=== PATIENT | female | born 1955 | race Caucasian/White ===

== ENCOUNTER → 2020-09-23 13:29 | Outpatient (CLI) | payer MEDICARE, BC, SELFPAY | PROVIDERS: PCP Family Medicine; Referring Provider Family Medicine; Visit Provider Family Medicine | DX: M81.0 Age-related osteoporosis without current pathological fracture (principal); Z78.0 Asymptomatic menopausal state | CPT/HCPCS: 77080 ==

== ENCOUNTER → 2020-10-24 07:01 | Outpatient (CLI) | payer MEDICARE, BC, SELFPAY ==
[2020-10-24 08:05] LABS: Hematocrit 41.1 % (36-46); Hemoglobin 13.7 g/dL (12.0-16.0); Mean Corpuscular HGB Conc 33.4 % (30-36); Mean Corpuscular Hemoglobin 32.5 PG (26-34); Mean Corpuscular Volume 97.4 fL (80-100); Platelet Count 230 X10^3/uL (150-400); Red Blood Cell Count 4.22 X10^6/uL (4.0-5.2); Red Cell Distribution Width 12.7 % (11.6-14.8)
[2020-10-24 08:58] LABS: Vitamin D 25 Hydroxy (D3) 58.5 ng/mL (30.0-100.0)
[2020-10-24 09:14] LABS: TSH w/ Reflex to FT4 1.49 uIU/mL (0.47-4.68)
[2020-10-25 07:09] LABS: Parathyroid Hormone Int 53 pg/mL (15-65)
== END ==
PROVIDERS: PCP Family Medicine; Referring Provider Family Medicine; Visit Provider Family Medicine
DX: M81.0 Age-related osteoporosis without current pathological fracture (principal); M85.859 Other specified disorders of bone density and structure, unspecified thigh
CPT/HCPCS: 36415; 82306; 83970; 84443; 85027

== ENCOUNTER → 2020-10-25 07:02 | Outpatient (CLI) | payer MEDICARE, BC, SELFPAY ==
[2020-10-25 09:58] LABS: Calcium 24 Hour Urine 92 mg/day (100-300); Calcium Urine Random 8.4 mg/dL; Collection Time Urine 24 Hours; Total Volume Urine 1100 mL
[2020-10-25 12:39] LABS: Collection Time Urine 24 Hours; Creatinine 24 Hour Urine 886 mg/day (800-1800); Creatinine Urine Random 80.5 mg/dL; Total Volume Urine 1100 mL
== END ==
PROVIDERS: PCP Family Medicine; Referring Provider Family Medicine; Visit Provider Family Medicine
DX: M81.0 Age-related osteoporosis without current pathological fracture (principal)
CPT/HCPCS: 82340; 82570

== ENCOUNTER → 2020-11-06 07:03 | Outpatient (CLI) | payer MEDICARE, BC, SELFPAY ==
[2020-11-07 19:07] LABS: Deamidated Gliadin Ab IgA 6 units (0-19); Deamidated Gliadin Ab IgG 1 units (0-19); Immunoglobulin A,Qn 164 mg/dL (87-352); t-Transglutaminase IgA <2 U/mL (0-3)
== END ==
PROVIDERS: PCP Family Medicine; Referring Provider Family Medicine; Visit Provider Family Medicine
DX: M81.0 Age-related osteoporosis without current pathological fracture (principal)
CPT/HCPCS: 36415; 82784; 83516

== ENCOUNTER → 2022-01-14 07:20 | Outpatient (CLI) | payer MEDICARE, BC, SELFPAY ==
[2022-01-14 07:58] LABS: Add Manual Diff / Slide Review NO; Basophils Absolute Auto 0 /uL (0-100); Basophils Percent Auto 0.5 % (0-2); Eosinophils Absolute Auto 100 /uL (0-450); Eosinophils Percent Auto 1.4 % (2-4); HEMOLYSIS < 15 (0-50); Hematocrit 39.5 % (36-46); Hemoglobin 13.3 g/dL (12.0-16.0); Lymphocytes Absolute Auto 1800 /uL (1100-4500); Lymphocytes Percent Auto 45.4 % (25-40); Mean Corpuscular HGB Conc 33.7 % (30-36); Mean Corpuscular Hemoglobin 32.6 PG (26-34); Mean Corpuscular Volume 96.8 fL (80-100); Monocytes Absolute Auto 400 /uL (0-900); Monocytes Percent Auto 9.2 % (3-14); Neutrophils Absolute Auto 1700 /uL (1500-7000); Neutrophils Percent Auto 43.5 % (50-75); Platelet Count 229 X10^3/uL (150-400); Red Blood Cell Count 4.08 X10^6/uL (4.0-5.2); Red Cell Distribution Width 13.2 % (11.6-14.8)
[2022-01-14 08:03] LABS: BUN Creatinine Ratio 23.3 (6-22); Blood Urea Nitrogen 20 mg/dL (7-17); Calcium 9.4 mg/dL (8.4-10.2); Carbon Dioxide 30 mmol/L (22-32); Chloride 105 mmol/L (98-107); Cholesterol 213 mg/dL (140-199); Estimated Glomerular Filt Rate > 60 mL/min (>60); Glucose 97 mg/dL (80-110); HDL Cholesterol 87 mg/dL (40-60); LDL Cholesterol Calculated 114 mg/dL (<100); Potassium 4.4 mmol/L (3.4-5.1); Sodium 139 mmol/L (137-145); Triglycerides 62 mg/dL (35-150)
[2022-01-14 08:21] LABS: Vitamin D 25 Hydroxy (D3) 75.7 ng/mL (30.0-100.0)
[2022-01-15 03:36] LABS: LDL Cholesterol Direct 104 mg/dL (<100)
[2022-01-15 04:18] LABS: Hemoglobin A1C% w Est Avg Glu 5.5 % (4.0-6.0)
== END ==
PROVIDERS: PCP Family Medicine; Referring Provider Family Medicine; Visit Provider Family Medicine
DX: K90.0 Celiac disease (principal); R73.09 Other abnormal glucose; E78.00 Pure hypercholesterolemia, unspecified; M81.0 Age-related osteoporosis without current pathological fracture; R79.89 Other specified abnormal findings of blood chemistry
CPT/HCPCS: 36415; 80048; 80061; 82306; 83036; 83721; 85025

== ENCOUNTER → 2022-01-15 07:17 | Outpatient (CLI) | payer MEDICARE, BC, SELFPAY ==
[2022-01-15 11:41] LABS: Collection Time Urine 24 Hours; Creatinine 24 Hour Urine 901 mg/day (800-1800); Creatinine Urine Random 42.9 mg/dL; Total Volume Urine 2100 mL
[2022-01-15 16:13] LABS: Calcium 24 Hour Urine 162 mg/day (100-300); Calcium Urine Random 7.7 mg/dL; Collection Time Urine 24 Hours; Total Volume Urine 2100 mL
== END ==
PROVIDERS: PCP Family Medicine; Referring Provider Family Medicine; Visit Provider Family Medicine
DX: M81.0 Age-related osteoporosis without current pathological fracture (principal)
CPT/HCPCS: 82340; 82570

== ENCOUNTER → 2022-02-05 07:54 | Outpatient (CLI) | payer MEDICARE, BC, SELFPAY ==
[2022-02-06 16:45] LABS: Deamidated Gliadin Ab IgA 5 units (0-19); Deamidated Gliadin Ab IgG 1 units (0-19); Immunoglobulin A,Qn 157 mg/dL (87-352); t-Transglutaminase IgA <2 U/mL (0-3)
== END ==
PROVIDERS: PCP Family Medicine; Referring Provider Family Medicine; Visit Provider Family Medicine
DX: K90.0 Celiac disease (principal)
CPT/HCPCS: 36415; 82784; 83516

== ENCOUNTER → 2022-09-30 09:42 | Outpatient (CLI) | payer MEDICARE, BC, SELFPAY ==
--- NOTE | 2022-09-29 09:45 | DI.DEXA.S_ITS ---
Bone Density Report Name: ZARI CEDILLO Age: 67 Sex: Female Ethnicity: White Date of : 1955 Indication: postmenopausal osteoporosis; monitoring treatment; Referring Provider: RADHA ROWLEY Study: Bone densitometry was performed. Exam Date: September 30, 2022 Accession number: [id number] Bone Density: Region BMD T-score Z-score Classification AP Spine(L1, L2, L3) 0.773 -2.2 -0.3 Osteopenia Femoral Neck (Left) 0.567 -2.5 -0.8 Osteoporosis Total Hip (Left) 0.686 -2.1 -0.7 Osteopenia Femoral Neck (Right) 0.531 -2.9 -1.2 Osteoporosis Total Hip (Right) 0.645 -2.4 -1.0 Osteopenia Total Hip Mean 0.666 -2.3 -0.9 Osteopenia World Health Organization criteria for BMD impression classify patients as: Normal (T-score at or above -1.0), Osteopenia (T-score between -1.0 and -2.5), or Osteoporosis (T-score at or below -2.5). 10-year Fracture Risk: FRAX not reported because: Some T-score for Spine Total or Hip Total or Femoral Neck at or below -2.5 Treated for osteoporosis Previous Exams: -- Region Exam Age BMD T-score BMD Change BMD Change Date g/cm2 vs Baseline vs Previous -- AP Spine (L1-L3) 09/30/2022 67 0.773 -2.2 0.015 (2.0%)# 0.015 (2.0%)# 09/23/2020 65 0.757 -2.4 Total Hip(Left) 09/30/2022 67 0.686 -2.1 0.015 (2.2%)# 0.015 (2.2%)# 09/23/2020 65 0.672 -2.2 Total Hip(Right) 09/30/2022 67 0.645 -2.4 0.018 (2.9%)# 0.018 (2.9%)# 09/23/2020 65 0.626 -2.6 -- *Denotes significance at 95% confidence level, LSC for AP Spine = 0.022 g/cm2, LSC for Total Hip = 0.027 g/cm2 # Denotes dissimilar scan types or analysis methods Impression: The patient has osteoporosis, based on the Right Femoral Neck T-score. No significant bone loss was observed. Discussion: PATIENT UNDER TREATMENT WITH NO SIGNIFICANT BMD LOSS SINCE LAST EXAM. In an untreated patient, BMD typically declines with age. A lack of decline or gain is usually a sign that treatment is efficacious and fracture risk is reduced. It is important to ask patients whether they are taking their medications and to encourage continued and appropriate compliance with their osteoporosis therapies to reduce fracture risk. It is also important to review their risk factors and encourage appropriate calcium and vitamin D intakes, exercise, fall prevention and other lifestyle measures. Follow-Up: Consider a repeat BMD and Vertebral Fracture Assessment (VFA) exam in 2 years or sooner if medically necessary, to reassess this patient's status. Reported by: SALVADOR DUNHAM M.D. on 09/30/2022 10:05:00 AM.
== END ==
PROVIDERS: PCP Internal Medicine; Referring Provider Internal Medicine; Visit Provider Internal Medicine
DX: M81.0 Age-related osteoporosis without current pathological fracture (principal); Z79.83 Long term (current) use of bisphosphonates
CPT/HCPCS: 77080

== ENCOUNTER → 2023-01-22 08:51 | Outpatient (CLI) | payer MEDICARE, BC, SELFPAY ==
[2023-01-22 10:45] LABS: Alanine Aminotransferase 23 IU/L (<35); Albumin 4.7 g/dL (3.5-5.0); Albumin Globulin Ratio 1.6 (1.0-2.8); Alkaline Phosphatase 62 U/L (38-126); Aspartate Aminotransferase 26 IU/L (14-36); BUN Creatinine Ratio 22.4 (6-22); Bilirubin Total 0.8 mg/dL (0.2-1.3); Blood Urea Nitrogen 17 mg/dL (7-17); Calcium 9.7 mg/dL (8.4-10.2); Carbon Dioxide 30 mmol/L (22-32); Chloride 103 mmol/L (98-107); Cholesterol 229 mg/dL (140-199); Estimated Glomerular Filt Rate > 60 mL/min (>60); Globulin 2.9 g/dL (1.7-4.1); Glucose 87 mg/dL (80-110); HDL Cholesterol 94 mg/dL (40-60); HEMOLYSIS < 15 (0-50); LDL Cholesterol Calculated 123 mg/dL (<100); Potassium 4.6 mmol/L (3.4-5.1); Sodium 140 mmol/L (137-145); Total Protein 7.6 g/dL (6.3-8.2); Triglycerides 60 mg/dL (35-150)
[2023-01-23 08:47] LABS: x Labcorp Estim. Avg Glu (eAG) 123 mg/dL (.); x Labcorp Hemoglobin A1c 5.9 % (4.8-5.6)
== END ==
PROVIDERS: PCP Internal Medicine; Referring Provider Internal Medicine; Visit Provider Internal Medicine
DX: E78.2 Mixed hyperlipidemia; M81.0 Age-related osteoporosis without current pathological fracture; R73.01 Impaired fasting glucose
CPT/HCPCS: 36415; 80053; 80061; 83036

== ENCOUNTER → 2023-05-05 17:04 | Outpatient (CLI) | payer MEDICARE, BC, SELFPAY ==
[2023-05-05 17:47] LABS: Hemoglobin A1C% w Est Avg Glu 5.7 % (4.0-6.0)
[2023-05-05 17:55] LABS: Glucose 107 mg/dL (80-110)
== END ==
PROVIDERS: PCP Internal Medicine; Referring Provider Internal Medicine; Visit Provider Internal Medicine
DX: R73.01 Impaired fasting glucose (principal)
CPT/HCPCS: 36415; 82947; 83036

== ENCOUNTER → 2024-01-28 06:55 | Outpatient (CLI) | payer MEDICARE, BC, SELFPAY ==
[2024-01-28 07:52] LABS: Hematocrit 39.9 % (36-46); Hemoglobin 13.6 g/dL (12.0-16.0); Mean Corpuscular Hemoglobin 32.7 PG (26-34); Mean Corpuscular Volume 96.2 fL (80-100); Platelet Count 233 X10^3/uL (150-400); Red Blood Cell Count 4.15 X10^6/uL (4.0-5.2); Red Cell Distribution Width 13.5 % (11.6-14.8)
[2024-01-28 08:01] LABS: Hemoglobin A1C% w Est Avg Glu 5.4 % (4.0-6.0)
[2024-01-28 08:06] LABS: Alanine Aminotransferase 28 IU/L (<35); Albumin 4.7 g/dL (3.5-5.0); Albumin Globulin Ratio 1.8 (1.0-2.8); Alkaline Phosphatase 84 U/L (38-126); Aspartate Aminotransferase 31 IU/L (14-36); BUN Creatinine Ratio 32.5 (6-22); Bilirubin Total 0.8 mg/dL (0.2-1.3); Blood Urea Nitrogen 27 mg/dL (7-17); Calcium 9.8 mg/dL (8.4-10.2); Carbon Dioxide 27 mmol/L (22-32); Chloride 106 mmol/L (98-107); Cholesterol 199 mg/dL (140-199); Estimated Glomerular Filt Rate > 60 mL/min (>60); Globulin 2.6 g/dL (1.7-4.1); Glucose 91 mg/dL (80-110); HDL Cholesterol 99 mg/dL (40-60); HEMOLYSIS 18 (0-50); LDL Cholesterol Calculated 86 mg/dL (<100); Potassium 4.5 mmol/L (3.4-5.1); Sodium 141 mmol/L (137-145); Total Protein 7.3 g/dL (6.3-8.2); Triglycerides 68 mg/dL (35-150)
== END ==
PROVIDERS: PCP Internal Medicine; Referring Provider Internal Medicine; Visit Provider Internal Medicine
DX: R73.01 Impaired fasting glucose (principal); E78.2 Mixed hyperlipidemia; M81.0 Age-related osteoporosis without current pathological fracture; M02.30 Reiter's disease, unspecified site
CPT/HCPCS: 36415; 80053; 80061; 83036; 85027

== ENCOUNTER → 2024-10-09 12:38 | Outpatient (CLI) | payer MEDICARE, BC, SELFPAY ==
--- NOTE | 2024-10-09 12:40 | DI.RAD.S_ITS ---
PROCEDURE: XR DEXA AXIAL SKELETON INDICATIONS: osteoporosis COMPARISON: [facility], , XR DEXA AXIAL SKELETON, 09/30/2022, 9:53. FINDINGS: Lumbar Spine: Bone mineral density is 0 0.738 g/cm2, T score -2.5, previously -2.2. Left Femoral Neck: Bone mineral density 0.565 g/cm2, T score -2.6. Left Hip: Bone mineral density is 0.686 g/cm2, T score of -2.1, previously -2.1. Fracture Risk Calculation (when applicable): 10-year fracture risk of a major osteoporotic fracture 13 percent and of a hip fracture 3.4 percent. (T score greater or equal to -1.0 to: NORMAL) (T score from -1.1 to -2.4: OSTEOPENIA) (T score less than or equal to -2.5: OSTEOPOROSIS) IMPRESSION: Left femoral neck osteoporosis Follow-up guidelines as follows: Osteoporosis: Consider a repeat DEXA and Vertebral Fracture Assessment (VFA) exam in 2 years or sooner if medically necessary, to reassess this patient's status. Osteopenia: Consider a repeat DEXA in 2-3 years to reassess this patient's status, or if there is a new clinical indication. Normal: Consider a repeat DEXA in 5 years or sooner, or if there is a new clinical indication. All treatment decisions require clinical judgment and consideration of individual patient factors, including patient preferences, comorbidities, previous drug use, risk factors not captured in the FRAX model (e.g., frailty, falls, vitamin D deficiency, increased bone turnover, interval significant decline in bone density ) and possible under- or over-estimation of fracture risk by FRAX. In addition, the NOF Guide recommends that FDA-approved medical therapies be considered in postmenopausal women and men age >= 50 years with a: * Hip or vertebral (clinical or morphometric) fracture * T-score of <=-2.5 at the spine or hip * Ten-year fracture probability by FRAX of >= 3% for hip fracture or >=20% for major osteoporotic fracture. Approved by: Matt Murrieta M.D. on 10/09/2024 at 18:30
== END ==
PROVIDERS: PCP Internal Medicine; Referring Provider Internal Medicine; Visit Provider Internal Medicine
DX: M81.0 Age-related osteoporosis without current pathological fracture (principal)
CPT/HCPCS: 77080

== ENCOUNTER → 2025-01-30 07:03 | Outpatient (CLI) | payer MEDICARE, BC, SELFPAY ==
[2025-01-30 07:53] LABS: Hemoglobin A1C% w Est Avg Glu 5.6 % (4.0-6.0)
[2025-01-30 09:05] LABS: Blood Urea Nitrogen 24 mg/dL (7-17); Calcium 10.1 mg/dL (8.4-10.2); Carbon Dioxide 28 mmol/L (22-32); Chloride 103 mmol/L (98-107); Cholesterol 202 mg/dL (140-199); Estimated Glomerular Filt Rate > 60 mL/min (>60); Glucose 92 mg/dL (70-99); HDL Cholesterol 86 mg/dL (40-60); HEMOLYSIS < 15 (0-50); Potassium 4.4 mmol/L (3.4-5.1); Sodium 139 mmol/L (137-145); Triglycerides 63 mg/dL (35-150)
== END ==
PROVIDERS: PCP Internal Medicine; Referring Provider Internal Medicine; Visit Provider Internal Medicine
DX: R73.01 Impaired fasting glucose (principal); E78.2 Mixed hyperlipidemia
CPT/HCPCS: 36415; 80048; 80061; 83036; 84450

== ENCOUNTER 2025-05-25 11:50 | Day surgery (SDC) | payer MEDICARE, OTHER, SELFPAY ==
[2025-05-22 12:18] VITALS: BMI 20.5
--- NOTE | 2025-05-25 | PATH_ITS ---
[facility] Accession Number: [id number] No. of containers..01 Tissue . 01 Material submitted: . colon - COLON, DESCENDING POLYP . 01 Diagnosis: A: DESENDING COLON, POLYPECTOMY: Tubular adenoma. [facility] 06/04/2025 1334 Local . 01 Electronically signed: . Felicita Scherer MD, Pathologist NPI- [id number] . 01 Gross description: . Received is one formalin-filled container labeled with the patient's name and labeled descending colon polyp. The specimen consists of one fragment of almendarez, soft tissue which measures 0.1 x 0.1 x 0.1 cm. The specimen is totally submitted in cassette A1. ([id number]) /BEAN 05/30/20252117 Local . 01 Pathologist provided ICD-10: Z12.11 . 01 CPT . 717516 Specimen Comment: A courtesy copy of this report has been sent to [phone] Performed at: [address] [facility] [address] [address], [place], [place] [id number] MD Michael Esparza MD Phone: [phone]
[2025-05-25] MEDS: LACTATED RINGERS 1,000 ML 42 ML IV (12:15)
[2025-05-25 12:24] VITALS: BP 117/68; PULSE 71; RESP 16; TEMP 36.8; O2SAT 100
--- NOTE | 2025-05-25 13:21 | PM.HP.IH.1 ---
History of Present Illness History of Present Illness Date Patient Seen: 05/25/25 Time Patient Seen: 13:21 Chief complaint: Screening Colonoscopy Narrative: Marizol is a 70-year-old woman with a history of polyps and a family history of colon cancer in her brother who was in his 50s. Her last colonoscopy was in 2019 at [facility] and no polyps were found. She does not remember exactly when she had polyps in the past. [facility] Medical History Age-related osteoporosis without current pathological fracture Allergic rhinitis Celiac disease Chronic back pain (~2018) Colon polyps (~2014) Family history of colon cancer Herpesvirus infection (~2009) History of colonic polyps HLA B27 (HLA B27 positive) Impaired fasting glucose Menopausal syndrome Mixed hyperlipidemia Polyneuropathy, unspecified Prediabetes (~2018) Reactive arthritis (~1998) Rosacea (~2004) Surgical History Anesthesia History of tubal ligation (~1993) [place] teeth removed (~1989) Family History Father Helicobacter pylori (H. pylori) Mother Cancer Mental health problem Thyroid disorder Brother Colon cancer Obesity Sister History of kidney disease Diabetes mellitus Hyperlipidemia Hypertension History of colostomy Obesity Sister Cancer Obesity Sister Diabetes mellitus Hypertension Hyperlipidemia Mental health problem Rheumatoid arthritis Obesity Anemia History of cholecystectomy Parathyroiditis (autoimmune) Sister Diabetes mellitus Hyperlipidemia Hypertension PCOS (polycystic ovarian syndrome) Psoriasis Social History details: (Ky Denson), no children, retired CPA Smoking Status: Never smoker alcohol intake: current Meds Home Medications and Allergies Home Medications ?Medication ?Instructions ?Recorded ?Confirmed ?Type blood-glucose sensor (FreeStyle #2 ea 11/21/24 02/06/25 Rx Peggy 3 Plus Sensor device) acyclovir 400 mg tablet 400 mg PO TID HSV outbreaks #21 02/06/25 05/25/25 Rx tabs alendronate 70 mg tablet 70 mg PO QWEEK Osteoporosis #12 02/06/25 05/25/25 Rx tabs estradiol 0.01% (0.1 mg/gram) 1 g vaginal 2XW #42.5 grams 02/06/25 05/25/25 Rx vaginal cream Allergies Allergy/AdvReac Type Severity Reaction Status Date / Time No Known Drug Allergies Allergy Verified 02/06/25 08:54 Exam Vital Signs (past 8 hours): - 05/25/25 12:24 Temperature 98.2 F Pulse Rate 71 Respiratory Rate 16 Blood Pressure 117/68 Pulse Oximetry 100 Oxygen Delivery Method Room Air Oxygen Delivery Method Room Air Const General: healthy appearing Assessment & Plan Assessment and plan (1) Family history of colon cancer: Status: Acute Plan Colonoscopy for a family history of colon cancer. If she was no polyps again today she could have one more colonoscopy in 5 years and then stop. Time-Based Coding :: [TOTAL MINUTES] spent with patient and on the chart (including review of chart, obtaining history, exam, reviewing outside data, placing orders, documenting exam and treatment plan, and counseling patient) on [DATE]. [employer] Document charge(s): No
[2025-05-25 13:52] VITALS: BP 94/52; PULSE 76; RESP 14; TEMP 36.2; O2SAT 87
--- NOTE | 2025-05-25 13:53 | PM.OP.COLON ---
Operative Date/Time/Diagnoses Date of procedure: 05/25/25 Time of procedure: 13:53 Pre-op diagnosis: Family history of colon cancer Post-op diagnosis: same Procedure & Clinicians Study performed: Colonoscopy Same procedure(s) as scheduled: Yes Surgeon: Jez Mckeon Anesthesia Type: MAC +/- Procedure Notes Procedure in detail: Surgeon: Jez Mckeon MD Anesthesia: Izzy Johnnie DO Procedure: The patient was brought to the endoscopy suite, placed in left lateral decubitus position. The patient was connected to monitoring devices. A time-out was performed. Sedation was administered. Once the patient was adequately sedated, a digital rectal exam was performed and was normal. The scope was then inserted and advanced to the cecum where the appendiceal orifice was identified and photographed. The scope was then slowly withdrawn over greater than 6 minutes. The mucosa was thoroughly inspected. A 3 mm polyp in the descending colon removed with a cold snare. There was scattered diverticulosis throughout the colon. The scope was retroflexed in the rectum. No other abnormalities were found. The scope was straightened and removed. The patient was awakened and brought to recovery. Scope withdrawal time: 8 minutes Sedation time: 15 minutes Findings: 3 mm descending colon polyp and scattered diverticulosis Estimated Blood Loss: 3 Complications: none Post-procedure Disposition: PACU
[2025-05-25 13:58] VITALS: BP 90/53; PULSE 64; RESP 29; O2SAT 98
[2025-05-25 14:02] VITALS: BP 102/57; PULSE 22; RESP 61; TEMP 36.1; O2SAT 99
[2025-05-25 14:10] VITALS: BP 110/69; PULSE 58; O2SAT 99
== END 2025-05-25 14:22 | disposition home or self-care (01) ==
PROVIDERS: PCP Internal Medicine; Referring Provider Surgery; Visit Provider Surgery
PROC: 0DJD8ZZ Inspection of Lower Intestinal Tract, Via Natural or Artificial Opening Endoscopic (ICD-10-PCS; CPT 45378; principal; 2025-05-25 13:00)
DX: Z12.11 Encounter for screening for malignant neoplasm of colon (principal); K57.30 Diverticulosis of large intestine without perforation or abscess without bleeding; Z80.0 Family history of malignant neoplasm of digestive organs; Z86.0100 Personal history of colon polyps, unspecified; R73.03 Prediabetes; M81.0 Age-related osteoporosis without current pathological fracture; D12.4 Benign neoplasm of descending colon
CPT/HCPCS: 45385; J2704; J7120